=== PATIENT | male | born 1975 ===

== ENCOUNTER → 2016-09-01 | Outpatient (CLI) | payer OTHER ==
--- NOTE | 2016-09-01 12:49 | Diagnostic Imaging Report ---
Indication: COUGH Technique: One view of the chest Comparison: none Findings: The lungs are equivocally somewhat hyperinflated. Lungs and pleural spaces are clear There are surgical clips to the left of the upper mediastinum. The aorta is tortuous. The aortic arch is unusually small in caliber The heart size is normal. Impression: No acute process graph slight pulmonary hyperinflation, may reflect asthma or COPD changes. Correlate with clinical history Left upper mediastinal surgical clips. Correlate with surgical history Unusually small caliber aortic arch which is somewhat tortuous. May be developmental variant,, correlate with any prior history of congenital heart disease
== END | disposition home or self-care (01) ==
LOC: RAD 09:20
DX: R05 Cough (principal)
CPT/HCPCS: 71020